=== PATIENT | female | born 1950 | race Caucasian/White ===

== ENCOUNTER 2019-10-15 | Emergency (ER) | payer MEDICARE ==
[2019-10-16 00:18] LABS: IMMATURE GRANULOCYTES 0.3 % (0.0-5.0); MEAN CELL VOLUME 102.6 fL CALC (80.0-100.0); MEAN CORPUSCULAR HGB 35.3 pG CALC (26.0-32.0); MEAN CORPUSCULAR HGB CONC 34.4 g/dL CAL (32.0-36.0); NEUT# 0.8 thou/uL (2.00-7.15); RED BLOOD COUNT 1.53 mill/uL (4.20-5.60); RED CELL DISTRI WIDTH 22.1 % (11.5-15.5)
[2019-10-16 00:23] LABS: HEMATOCRIT 15.7 % (37.0-47.0); HEMOGLOBIN 5.4 g/dl (12.0-16.0)
[2019-10-16 00:28] LABS: ALBUMIN 4.4 g/dL (3.2-5.0); ALKALINE PHOSPHATASE 30 u/l (38-126); AMYLASE 108 u/l (30-110); ANION GAP 22 (6-22 (CALC)); BILIRUBIN, TOTAL 2.7 mg/dL (0.0-1.4); BUN 34 mg/dL (8-23); BUN/CREATININE RATIO 38 (12-20 (CALC)); CARBON DIOXIDE 23 mmol/l (22-30); CHLORIDE 85 mmol/l (95-108); CREATININE 0.9 mg/dL (0.5-1.0); GFR > 60 ML/MIN (>=60 (CALC)); GFR FOR AFR.AMER. > 60 ML/MIN (>=60 (CALC)); LIPASE 364 u/l (23-300); POTASSIUM 3.7 mmol/l (3.5-5.1); SGOT/AST 50 u/l (9-36); SODIUM 126 mmol/l (137-146); TOTAL PROTEIN 7.8 g/dL (6.3-8.2)
[2019-10-16 00:40] LABS: MYOGLOBIN 230 ng/mL (0 - 62)
[2019-10-16] MEDS ORDERED: MAGNESIUM500 M3 PO (01:05)
[2019-10-16] MEDS ORDERED: DIGOXIN0.125 MG PO (01:05)
[2019-10-16] MEDS ORDERED: LASIX 40 MG TAB40 MG PO (01:05)
[2019-10-16] MEDS ORDERED: POTASSIUM CHLO10 MEQ PO (01:15)
[2019-10-16] MEDS ORDERED: METOPROL TAR25 MG PO (01:16)
[2019-10-16] MEDS ORDERED: DILTIAZEM CD180 MG PO (01:17)
[2019-10-16] MEDS ORDERED: ELIQUIS2.5 MG PO (01:18)
[2019-10-16] MEDS ORDERED: METFORMIN HCL1000 MG PO (01:24)
[2019-10-16] MEDS ORDERED: NEURONTIN100 MG PO (01:25)
[2019-10-16] MEDS ORDERED: BRILINTA90 MG PO (01:25)
[2019-10-16] MEDS ORDERED: ATORVASTATIN CA40 MG PO (01:26)
[2019-10-16] MEDS ORDERED: BYDUREON2 MG IJ (01:27)
[2019-10-16 01:54] VITALS: BP 111/56
[2019-10-16 02:15] VITALS: BP 121/57
== END 2019-10-16 02:59 ==
PROVIDERS: Family Medicine
PROC: 30233N1 Transfusion of Nonautologous Red Blood Cells into Peripheral Vein, Percutaneous Approach (ICD-10-PCS; principal; 2019-10-16)
DX: I21.9 Acute myocardial infarction, unspecified (principal); K92.2 Gastrointestinal hemorrhage, unspecified; D64.9 Anemia, unspecified; I10 Essential (primary) hypertension; E11.40 Type 2 diabetes mellitus with diabetic neuropathy, unspecified; Z95.5 Presence of coronary angioplasty implant and graft
CPT/HCPCS: P9016; S0164

== ENCOUNTER 2019-10-28 12:27 | Emergency (ER) | payer MEDICARE ==
[~2019-10-28 12:27] MED LIST: ATORVASTATIN CA40 MG PO; BRILINTA90 MG PO; BYDUREON2 MG IJ; DIGOXIN0.125 MG PO; DILTIAZEM CD180 MG PO; ELIQUIS2.5 MG PO; LASIX 40 MG TAB40 MG PO; MAGNESIUM500 M3 PO; METFORMIN HCL1000 MG PO; METOPROL TAR25 MG PO; NEURONTIN100 MG PO; POTASSIUM CHLO10 MEQ PO
[2019-10-28 12:55] LABS: HEMATOCRIT 21.2 % (37.0-47.0); HEMOGLOBIN 7.2 g/dl (12.0-16.0); IMMATURE GRANULOCYTES 3.3 % (0.0-5.0); MEAN CORPUSCULAR HGB 31.4 pG CALC (26.0-32.0); NEUT# 1.21 thou/uL (2.00-7.15); RED BLOOD COUNT 2.29 mill/uL (4.20-5.60); RED CELL DISTRI WIDTH 16.9 % (11.5-15.5)
[2019-10-28 12:56] LABS: MEAN CELL VOLUME 92.6 fL CALC (80.0-100.0)
[2019-10-28 13:12] LABS: INTERNATIONAL NORMALIZED RATIO 1.1 RATIO (0.7-1.3); PROTHROMBIN TIME 11.2 SECONDS (9.0-12.5)
[2019-10-28 13:19] LABS: ALKALINE PHOSPHATASE 30 u/l (38-126); ANION GAP 18 (6-22 (CALC)); BUN 30 mg/dL (8-23); BUN/CREATININE RATIO 34 (12-20 (CALC)); CARBON DIOXIDE 22 mmol/l (22-30); CHLORIDE 90 mmol/l (95-108); CREATININE 0.9 mg/dL (0.5-1.0); GFR > 60 ML/MIN (>=60 (CALC)); GFR FOR AFR.AMER. > 60 ML/MIN (>=60 (CALC)); SGOT/AST 24 u/l (9-36); SODIUM 126 mmol/l (137-146); TOTAL PROTEIN 6.5 g/dL (6.3-8.2)
[2019-10-28 13:22] LABS: ALBUMIN 3.3 g/dL (3.2-5.0)
[2019-10-28 14:05] LABS: C-REACTIVE PROTEIN 15.2 mg/dL (0-0.9)
[2019-10-28 14:58] LABS: URINE BILIRUBIN - DIPSTICK NEGATIVE (NEGATIVE); URINE BLOOD DIPSTICK NEGATIVE (NEGATIVE); URINE COLOR YELLOW; URINE GLUCOSE - DIPSTICK NEGATIVE (NEGATIVE); URINE KETONE NEGATIVE (NEGATIVE); URINE LEUK ESTERASE NEGATIVE (NEGATIVE); URINE NITRITE - DIPSTICK NEGATIVE (Negative); URINE PROTEIN - DIPSTICK 30 mg/dL (NEG-TRACE); URINE SPECIFIC GRAVITY 1.015; URINE UROBILINOGEN - DIPSTICK 0.2 E.U./dL (0.2)
[2019-10-28 15:04] LABS: URINE MUCUS FEW hpf (NONE-FEW); URINE SQUAMOUS EPITHELIAL CELL FEW EPI/hpf (0-FEW)
[2019-10-28 18:06] VITALS: BP 95/51
== END 2019-10-28 18:06 ==
LOC: ED 12:27
PROVIDERS: Family Medicine
DX: A41.9 Sepsis, unspecified organism (principal); R65.20 Severe sepsis without septic shock; I21.4 Non-ST elevation (NSTEMI) myocardial infarction; E87.1 Hypo-osmolality and hyponatremia; E87.2 Acidosis; I10 Essential (primary) hypertension; E11.40 Type 2 diabetes mellitus with diabetic neuropathy, unspecified; Z95.5 Presence of coronary angioplasty implant and graft; Z79.84 Long term (current) use of oral hypoglycemic drugs; Z20.828 Contact with and (suspected) exposure to other viral communicable diseases
CPT/HCPCS: J0692; Q9967

== ENCOUNTER 2021-03-20 14:31 | Inpatient (IN) | payer MEDICARE ==
[~2021-03-20] VITALS: Ht 180.3 cm; Wt 71.0 kg
[~2021-03-20 14:31] MED LIST changes: +BYDUREON B2 MG/0.85 SC; -BYDUREON2 MG IJ; +MAGNESIUM OXID500 MG PO; -MAGNESIUM500 M3 PO
--- NOTE | 2021-03-20 14:50 | NUR ---
PT PRESENTS WITH REQUEST OF WOUND CHECK. SHE STATES SHE HAS BEEN TREATING THE WOUND AT HOME X 1 YEAR. WOUND HAS BECOME LARGER, RED, DRAINING, AND PAINFUL X 1 WEEK. PT ESCORTED TO ROOM 1.
--- NOTE | 2021-03-20 15:04 | NUR ---
Pt. moved to rm #6 for higher level of care. Report given to Ted aMttson and Ayleen Klein Rn.
[2021-03-20 15:50] LABS: IMMATURE GRANULOCYTES 0.6 % (0.0-5.0); MEAN CORPUSCULAR HGB 27.3 pG CALC (26.0-32.0); MEAN CORPUSCULAR HGB CONC 31.9 g/dL CAL (32.0-36.0); NEUT# 7.79 thou/uL (2.00-7.15); RED BLOOD COUNT 3.99 mill/uL (4.20-5.60); RED CELL DISTRI WIDTH 17.3 % (11.5-15.5)
[2021-03-20 15:51] LABS: HEMATOCRIT 34.2 % (37.0-47.0); HEMOGLOBIN 10.9 g/dl (12.0-16.0); MEAN CELL VOLUME 85.7 fL CALC (80.0-100.0)
[2021-03-20 16:00] LABS: BUN 12 mg/dL (8-23); BUN/CREATININE RATIO 20 (12-20 (CALC)); CHLORIDE 95 mmol/l (95-108); CREATININE 0.6 mg/dL (0.5-1.0); GFR > 60 ML/MIN (>=60 (CALC)); GFR FOR AFR.AMER. > 60 ML/MIN (>=60 (CALC)); POTASSIUM 4.2 mmol/l (3.5-5.1); SGOT/AST 21 u/l (9-36)
[2021-03-20 16:04] LABS: ALBUMIN 4.9 g/dL (3.2-5.0); ALKALINE PHOSPHATASE 54 u/l (38-126); ANION GAP 18 (6-22 (CALC)); CARBON DIOXIDE 28 mmol/l (22-30); SODIUM 137 mmol/l (137-146); TOTAL PROTEIN 8.8 g/dL (6.3-8.2)
--- NOTE | 2021-03-20 16:47 | NUR ---
PT RESTING QUIETLY ON STRETCHER, IV FLUIDS INFUSING
--- NOTE | 2021-03-20 17:45 | NUR ---
PT RESTING IN BED, FOOD PROVIDED PER MD SANCHEZ
--- NOTE | 2021-03-20 18:20 | NUR ---
RECIEVED REPORT FROM OG GREER. PT TO BE ADMIT TO 273.
--- NOTE | 2021-03-20 18:22 | NUR ---
REPORT GIVEN TO RICHARD FOLEY, ROOM BEING CLEANED FOR PT TRANSPORT
--- NOTE | 2021-03-20 18:31 | NUR ---
PATIENT HAD A 6 BEAT VTACH WHILE IN ER. DR SMILEY NOTIFIED. ORDER OBTAINED FOR TELEMETRY FOR ADMISSION. PATIENT TO BED ADMITTED TO ROOM 269
--- NOTE | 2021-03-20 18:37 | NUR ---
PT ARRIVED TO FLOOR VIA WHEEL CHAIR ACCOPANIED BY ER NURSE, PT ORIENTED TO ROOM AND CALL LIGHT, PT PROVIDED DINNER TRAY, CALL LIGHT IN REACH,CONTINUE TO MONITOR.
[2021-03-20 18:38] VITALS: BP 146/63
--- NOTE | 2021-03-20 20:30 | NUR ---
PT RESTING IN BED, NO SIGNS OF DISTRESS NOTED, RESP EVEN AND UNLABORED. PT ALERT AND ORIENTED X3, NOTED TRACE EDEMA TO LLE, OPEN AREA TO L GREAT TOE, SLIGHTLY REDDENED L FOOT, SEE CHART FOR PHOTO, DISCUSSED POC, PT VERBALIZED UNDERSTANDING. IV VANCO INFUSION COMPLETE, IV FLUSHED WELL, SL. ADMISSION ASSESSMENT COMPLETED, CALL LIGHT IN REACH,CONTINUE TO MONITOR.
[2021-03-21] VITALS: BP 133/76
--- NOTE | 2021-03-21 | NUR ---
PT RESTING IN BED, VITALS OBTAINED, IV ZOSYN INITIATED, PT MEDICATED WITH TYLENOL FOR LOW GRADE FEVER AND FOR PAIN 09/14, CALL LIGHT IN REACH,CONTINUE TO MONITOR.
[2021-03-21 04:00] VITALS: BP 115/53
--- NOTE | 2021-03-21 04:00 | NUR ---
PT RESTING IN BED, NO SIGNS OF DISTRESS NOTED, RESP EVEN AND UNLABORED. IV VANCO INITIATED, PT VOICES NO NEEDS OR COMPLAINTS AT THIS TIME, CALL LIGHT IN REACH,CONTINUE TO MONITOR.
[2021-03-21 05:54] LABS: HEMATOCRIT 31.9 % (37.0-47.0); HEMOGLOBIN 9.9 g/dl (12.0-16.0); MEAN CELL VOLUME 86.4 fL CALC (80.0-100.0); MEAN CORPUSCULAR HGB 26.8 pG CALC (26.0-32.0); RED BLOOD COUNT 3.69 mill/uL (4.20-5.60); RED CELL DISTRI WIDTH 17.2 % (11.5-15.5)
[2021-03-21 06:20] LABS: ANION GAP 15 (6-22 (CALC)); BUN 11 mg/dL (8-23); BUN/CREATININE RATIO 20 (12-20 (CALC)); C-REACTIVE PROTEIN 2.9 mg/dL (0-0.9); CARBON DIOXIDE 26 mmol/l (22-30); CHLORIDE 100 mmol/l (95-108); CREATININE 0.6 mg/dL (0.5-1.0); GFR > 60 ML/MIN (>=60 (CALC)); GFR FOR AFR.AMER. > 60 ML/MIN (>=60 (CALC)); MAGNESIUM 1.3 mg/dL (1.6-2.3); POTASSIUM 4.1 mmol/l (3.5-5.1); SODIUM 137 mmol/l (137-146)
--- NOTE | 2021-03-21 07:00 | NUR ---
RECIEVED REPORT FROM MYA LEE
--- NOTE | 2021-03-21 08:01 | NUR ---
DR MATTHEWS AT BEDSIDE
[2021-03-21 08:04] VITALS: BP 140/60
--- NOTE | 2021-03-21 08:04 | NUR ---
PT RESTING IN SEMI FOWLERS POSITION. PT IS A/OX3. ASSESSMENT AND VITALS COMPLETED. BP140/60, HR 94, O2 99% ON ROOM AIR. RESPIRATIONS ARE EVEN AND UNLABORED. LUNG SOUNDS ARE CLEAR. HEART RHYTHM IRREGULAR WITH TELE IN PLACE, AFIB PER ER MONITORING. BOWEL SOUNDS ARE ACTIVE. #20G RFA FLUSHED, SITE APPEARS HEALTHY AND PATENT. ULCER TO LEFT GREAT TOE NOTED, DRY DRESSING APPLIED PER PT REQUEST DUE TO DRAINAGE. PT COMPLAINS OF 7/10 PAIN, PT TO BE MEDICATED PER EMAR. PT DENIES OF ANY ADDITIONAL PAINS AT THIS TIME. ALL SAFTEY PRECAUTIONS ARE IN PLACE. WILL CONTINUE TO MONITOR.
--- NOTE | 2021-03-21 09:20 | NUR ---
PT TRANSPORTED TO MRI VIA [facility]RECTHER ACCOMPAINED BY PATTIE MORA IN STABLE CONDITION
[2021-03-21] MEDS ORDERED: ELIQUIS2.5 MG PO (09:27)
[2021-03-21] MEDS ORDERED: PLAVIX75 MG PO (09:27)
[2021-03-21] MEDS ORDERED: VITAMIN B-121000 MCG PO (09:31)
--- NOTE | 2021-03-21 10:06 | NUR ---
S: STEVE SOLANO is a 70 F who presents with cellulitis of left foot. She has a history of arthritis, diabetes, heart disease, hypertension, neuropathy, anemia, and leukemia. All medications in patient's chart were reviewed. O: VS: BP 140/60 mmHg, P 94 bpm, RR 18 breaths/min, T 97.9 degF W 71 kg, HT 71 in, Scr= 0.6 mg/dL, CrCl= 57 ml/min A: Blood culture is pending. Urine culture is pending. P: Patient is on Zosyn 3.375g IV Q6H and vancomycin 1g IV Q12H. Vancomycin ordered for pharmacy to dose. Start Vancomycin 100mg IV Q12H. Vancomycin trough is drawn before the 4th dose on 03/22/21 at 0330. Vancomycin goal trough is between 10-20 mcg/ml. Pharmacy will follow and or advise on antibiotics use as needed.
--- NOTE | 2021-03-21 10:30 | NUR ---
PT ARRIVED BACK TO [facility] ROOM 269 VIA WHEELCHAIR. PT REQUEST TO SHOWER. PT ASSISTED TO SHOWER. WILL CONTINUE TO MONITOR
--- NOTE | 2021-03-21 10:55 | NUR ---
DR SMILEY AND JOSH,ANTAMMY AT BEDSIDE
[2021-03-21 12:00] VITALS: BP 168/65
[2021-03-21] MEDS ORDERED: DIGITEK0.125 M1 PO (12:12)
--- NOTE | 2021-03-21 12:13 | NUR ---
PT SITTING ON SIDE OF BED EATING LUNCH. RESPIRATIONS ARE EVEN AND UNLABORED WITH NO DISTRESS NOTED. IV ANITBIOTICS INFUSING PER ORDER, SITE REMAINS HEALTHY AND PATENT. DRY DRESSING LEFT GREAT TOE REAMINS CDI. PT DENIES OF ANY ADDITIONAL NEEDS AT THIS TIME. ALL SAFETY PRECAUTIONS ARE IN PLACE. WILL CONTINUE TO MONITOR
--- NOTE | 2021-03-21 13:39 | NUR ---
REPORTD BP OF 168/65, DR SMILEY NOTIFIED. PT REFUSED AM METOPROLOLDUE TO WRONG DOSE. CORECT DOSAGE ORDERED.
[2021-03-21 14:30] VITALS: BP 119/59
--- NOTE | 2021-03-21 14:33 | NUR ---
REASSESSMENT OF BP RESULTING IN 119/59, HR 72.
--- NOTE | 2021-03-21 16:09 | NUR ---
PT RESTING IN SEMI FOWLERS POSITION. RESPIRATIONS ARE EVEN AND UNLABORED WITH NO DISTRESS NOTED. #20G RFA INFUSING WITH IVF ANTIBIOTICS. TELE MONITORING IN PLACE. PT DENIES OF ANY PAINS OR DISCOMFORTS AT THIS TIME. ALL SAFETY PRECAUTIONS ARE IN PLACE WITH CALL LIGHT IN REACH. WILL CONTINUE TO MONITOR
--- NOTE | 2021-03-21 17:20 | NUR ---
MEDICAL RECORDS REQUEST FAXED [phone].
--- NOTE | 2021-03-21 17:21 | NUR ---
[facility] US. RADIOLOGY CALLED. US TO BE CALLED IN PER TYREL KINCAIDRP
--- NOTE | 2021-03-21 18:30 | NUR ---
PT TRANSPORTED TO US VIA WHELECHAIR IN STABLE CONDITION.
[2021-03-21 19:45] VITALS: BP 136/65
--- NOTE | 2021-03-21 20:00 | NUR ---
PHYSICAL ASSESMENT COMPLETE. PT CURRENTLY DENIES PAIN OR DISCOMFORT. SCHEDULED MEDICATIONS AND PRN MEDICATION ADMINISTERED, SEE E-MAR. PT DENIES ANY NEEDS AT THIS TIME. PLAN OF CARE REVIEWED, PT DENIES QUESTIONS, VERBALIZES UNDERSTANDING. ITEMS WITHIN REACH, BED LOCKED IN LOW POSITION W/ BEDRAILS UP X2. CALL WHITE WITHIN REACH, AGREES TO CALL PRN.
[2021-03-22] VITALS: BP 127/71
--- NOTE | 2021-03-22 | NUR ---
PT LAYING IN BED WITH EYES CLOSED, APPEARS TO BE SLEEPING, APPEARS COMFORTABLE AND IN NO DISTRESS. RESPIRATIONS REGULAR AND UNLABORED. ITEMS REMAIN WITHIN REACH, CALL WHITE REMAINS WITHIN REACH. BED REMAINS LOCKED AND IN LOW POSITION WITH BEDRAILS UP X2. WILL CONTINUE TO MONITOR.
[2021-03-22 03:44] LABS: HEMATOCRIT 29.9 % (37.0-47.0); HEMOGLOBIN 9.3 g/dl (12.0-16.0); MEAN CELL VOLUME 87.2 fL CALC (80.0-100.0); MEAN CORPUSCULAR HGB 27.1 pG CALC (26.0-32.0); MEAN CORPUSCULAR HGB CONC 31.1 g/dL CAL (32.0-36.0); RED BLOOD COUNT 3.43 mill/uL (4.20-5.60); RED CELL DISTRI WIDTH 17.4 % (11.5-15.5)
[2021-03-22 04:00] VITALS: BP 110/61
--- NOTE | 2021-03-22 04:39 | NUR ---
PT RESTING IN BED, NO SIGNS OF DISTRESS NOTED, RESP EVEN AND UNLABORED. PT RECEIVING IV ANTIBIOTICS. PT VOICES NO NEEDS OR COMPLAINTS AT THIS TIME. CALL LIGHT IN REACH, CONTINUE TO MONITOR.
--- NOTE | 2021-03-22 07:00 | NUR ---
RECHOMEROVD REPORT FROM OG HORAN
[2021-03-22 08:09] VITALS: BP 140/70
--- NOTE | 2021-03-22 08:09 | NUR ---
PT RESTING IN SEMI FOWLERS POSITION. PT IS A/O X3. ASSESSMENT AND VITALS COMPLETED. BP 140/70, HR 93, O2 99% ON ROOM AIR. RESPIRATIONS ARE EVEN AND UNLABORED WITH NO DISTRESS NOTED. LUNG SOUNDS ARE CLEAR. HEART RHYTHM IRREGULAR WITH TELE IN PLACE, AFIB PER ER MONITORING. BOWEL SOUNDS ARE ACTIVE. #20G RFA FLSUHED, SITE REMAINS HEALTHY AND PATENT. ULCER TO LEFT GREAT TOE NOTED. DRY DRESSING REMAINS CDI. PT COMPLAINS OF 3/10 PAIN, PT TO BE MEDICATED PER EMAR. PT DENIES OF ANY ADDITIONAL NEEDS AT THIS TIME. ALL SAFETY PRECAUTIONS ARE IN PLACE WITH CALL LIGHT IN REACH. WILL CONTINUE TO MONITOR
--- NOTE | 2021-03-22 09:49 | NUR ---
DR SMILEY AND JOSH,ANTAMMY AT BEDSIDE
--- NOTE | 2021-03-22 10:40 | NUR ---
PT INFORMED OF TRANSFER TO [facility]. PT INFORMED OF WAIT TIME FOR BED. PT VERBALIZED UNDERSTANDING.
[2021-03-22 11:21] VITALS: BP 118/60
--- NOTE | 2021-03-22 11:44 | NUR ---
PT CAR HEREDIA TAKEN DOWN TO FRIEND MYLES PT REQUEST.
--- NOTE | 2021-03-22 12:15 | NUR ---
PT RESTING IN SEMI FOWLERS POSITION. RESPIRATIONS ARE EVEN AND UNLABORED WITH NO DISTRESS NOTED. #20G RFA INFUSING WITH IVF ANTIBIOTICS WITH EASE, SITE REMAINS HEALTHY AND PATENT. TELE MONITORING IN PLACE, AFIB PER ER MONITORING. PT COMPLAINS OF 3/10. PT MEDICATED WITH TYLENOL. PT DENIES OF ANY ADDITIONAL NEEDS. ALL SAFETY PRECAUTIONS ARE IN PLACE WITH CALL LIGHT IN REACH. WILL CONTINUE TO MONITOR
--- NOTE | 2021-03-22 14:42 | NUR ---
ROOM 233 RECIEVED FROM [facility]. [facility] CALLED, SPOKE WITH WILIAM. TRANSPORTATION TO ARRIVED IN 30 MIN. PT INFORMED, VERBLAIZED UNDERSTANDING.
--- NOTE | 2021-03-22 15:33 | NUR ---
PT TRANSPORTED TO [facility]IA [facility] IN STABLE CONDITION WITH ALL PERSONAL BELONGINGS.
--- NOTE | 2021-03-22 15:40 | NUR ---
REPORT GIVEN TO OG SOLOMON AT [facility].
--- NOTE | 2021-03-22 16:09 | NUR ---
PT SLEEPING IN SEMI FOWLERS POSITION. FAMILY FRIEND AT BEDSIDE TO VISIT. PT NAME CALLED. PT OPENED EYES SLIGHTLY. WHEN ASKED IF SHE WANTS TO WAKE UP TO VIST, PT SHAKES HEAD NO. RESPIRATIONS REMAINS EVEN AND UNLABORED WITH NO DISTRESS.TELE MONITORING IN PLACE. #22 LFA INFUSING WITH IVF PER ORDER, SITE REMAINS HEALTHY AND PATENT. BENDER CATH IN PLACE, YELLOW URINE NOTED. NO SIGNS OF ANY PAINS OR DISCOMFORTS AT THIS TIME. ALL SAFETY PRECAUTIONS ARE IN PLACE WITH CALL LIGHT IN REACH. WILL CONTINUE TO MONITOR
== END 2021-03-22 15:28 | DRG 638 ==
LOC: ED 14:31 → ED-I 17:42 → ED 17:54 → MS2 17:55
PROVIDERS: Family Medicine; Nurse Practitioner; ADMIT Hospitalist; ATTEND Hospitalist
DX: E11.69 Type 2 diabetes mellitus with other specified complication (principal); M86.8X7 Other osteomyelitis, ankle and foot; L03.116 Cellulitis of left lower limb; C92.01 Acute myeloblastic leukemia, in remission; E11.51 Type 2 diabetes mellitus with diabetic peripheral angiopathy without gangrene; I70.202 Unspecified atherosclerosis of native arteries of extremities, left leg; S91.102A Unspecified open wound of left great toe without damage to nail, initial encounter; E11.40 Type 2 diabetes mellitus with diabetic neuropathy, unspecified; I10 Essential (primary) hypertension; I48.91 Unspecified atrial fibrillation; I25.10 Atherosclerotic heart disease of native coronary artery without angina pectoris; M19.90 Unspecified osteoarthritis, unspecified site; B95.4 Other streptococcus as the cause of diseases classified elsewhere; X58.XXXA Exposure to other specified factors, initial encounter; Z95.5 Presence of coronary angioplasty implant and graft; Z79.84 Long term (current) use of oral hypoglycemic drugs; Z20.822 Contact with and (suspected) exposure to COVID-19
CPT/HCPCS: A9579; J1650; J3475

== ENCOUNTER 2024-01-25 16:38 | Observation (INO) | payer MEDICARE ==
[~2024-01-25] VITALS: Ht 180.3 cm; Wt 76.3 kg
[2024-01-25] VITALS (17 sets, daily range): BP systolic 112–163; BP diastolic 39–131
[~2024-01-25 16:38] MED LIST changes: +CARDIZEM LA180 M1 PO; +DIGITEK0.125 M1 PO; -DILTIAZEM CD180 MG PO; +PLAVIX75 MG PO; +VITAMIN B-121000 MCG PO
[2024-01-25] MEDS ORDERED: ONDANSETRON HCl 4 MG/2 ML SDV IV ONE (17:00)
[2024-01-25] MEDS ORDERED: GLUCAGON HCL (Rdna) 1 MG VIAL IV ONE ×2 (17:00→17:45)
[2024-01-25] MEDS ORDERED: ASPIRIN 81 MG/TAB PO ONE (17:10)
[2024-01-25] MEDS ORDERED: MORPHINE SULFATE 4 MG/ML VIAL IV ONE (17:15)
[2024-01-25 17:26] LABS: BASO% 0.7 % (0-3); EOS% 5.8 % (0-8); HEMATOCRIT 28.4 % (37.0-47.0); HEMOGLOBIN 9.4 g/dl (12.0-16.0); IMMATURE GRANULOCYTES 1.6 % (0.0-5.0); LYMPH% 25.1 % (15-41); MEAN CELL VOLUME 90.7 fL CALC (80.0-100.0); MEAN CORPUSCULAR HGB CONC 33.1 g/dL CAL (32.0-36.0); MONO% 6.6 % (2-13); NEUT# 4.96 thou/uL (2.00-7.15); NEUT% 60.2 % (42-76); RED BLOOD COUNT 3.13 mill/uL (4.20-5.60)
[2024-01-25 17:43] LABS: D-DIMER 0.55 mg/L (0.19-0.60)
[2024-01-25 17:47] LABS: ALBUMIN 4.9 g/dL (3.2-5.0); ALKALINE PHOSPHATASE 29 u/l (38-126); BILIRUBIN, TOTAL 0.7 mg/dL (0.02-1.3); BUN 26 mg/dL (8-23); CARBON DIOXIDE 21 mmol/l (22-30); CHLORIDE 103 mmol/l (95-108); SGOT/AST 28 u/l (9-36); SODIUM 134 mmol/l (137-146)
[2024-01-25 17:50] LABS: INTERNATIONAL NORMALIZED RATIO 1.2 RATIO (0.7-1.3)
[2024-01-25 17:58] LABS: BUN/CREATININE RATIO 14 (12-20 (CALC)); CREATININE 1.9 mg/dL (0.5-1.0); ESTIMATED GFR 27 ML/MIN (>=90 (CALC))
[2024-01-25 17:59] LABS: ANION GAP 16 (6-22 (CALC))
[2024-01-25 18:00] LABS: POTASSIUM 6.3 mmol/l (3.5-5.1)
[2024-01-25] MEDS ORDERED: ALBUTEROL SULFATE 2.5 MG VIAL IN ONE (19:10)
[2024-01-25] MEDS ORDERED: CALCIUM GLUCONATE 1 GM in SODIUM CHLORIDE 0.9% 50 ML IV ONE (19:10)
[2024-01-25] MEDS ORDERED: INSULIN REGULAR (HUMAN) 100 UNIT/ML INJ IV ONE ×2 (19:10→21:45)
[2024-01-25] MEDS ORDERED: DEXTROSE 10% 500 ML BAG IV ONE (19:10)
[2024-01-25] MEDS ORDERED: SODIUM POLYSTYRENE SULFONATE 15 G/BTL POWDER PO ONE (19:10)
[2024-01-25] MEDS ORDERED: ACETAMINOPHEN 325 MG/TAB PO PRN (19:15)
[2024-01-25] MEDS ORDERED: MORPHINE SULFATE 4 MG/ML VIAL IV PRN (19:15)
[2024-01-25] MEDS ORDERED: NITROGLYCERIN 0.4 MG/TAB SL PRN (19:15)
[2024-01-25] MEDS ORDERED: SODIUM CHLORIDE 0.9% 500 ML IV ONE (19:15)
[2024-01-25] MEDS ORDERED: MAGNESIUM HYDROXIDE 30 ML UDC PO PRN (19:15)
[2024-01-25] MEDS ORDERED: IPRATROPIUM-Albuterol 0.5MG-2.5MG/3 ML NEB PRN (19:20)
[2024-01-25] MEDS ORDERED: ONDANSETRON HCl 4 MG/2 ML SDV IV PRN (19:20)
[2024-01-25] MEDS ORDERED: CLARIFY DOSE PO PRN (20:25)
[2024-01-25] MEDS ORDERED: SODIUM ZIRCONIUM CYCLOSILICATE 10 GM PAK PO SCH ×2 (21:00→21:45)
[2024-01-25] MEDS ORDERED: ATORVASTATIN CALCIUM 40 MG/TAB PO SCH (21:00)
[2024-01-25] MEDS ORDERED: APIXABAN BASE 2.5 MG/TAB TAB PO SCH (21:00)
[2024-01-25] MEDS ORDERED: INSULIN LISPRO 100 UNITS/ML ML SC SCH (21:00)
[2024-01-25] MEDS ORDERED: FENOFIBRATE160 MG PO (21:25)
[2024-01-25] MEDS ORDERED: GLIPIZIDE10 M2 PO (21:27)
[2024-01-25] MEDS ORDERED: FEROSUL325 MG PO (21:28)
[2024-01-25] MEDS ORDERED: CITRACAL + D3 MAXIMU PO (21:29)
[2024-01-25] MEDS ORDERED: FISH OIL1000 M1 PO (21:30)
[2024-01-25] MEDS ORDERED: SODIUM BICARBONATE 150 ML in DEXTROSE 5% 850 ML IV PRN (21:40)
[2024-01-25] MEDS ORDERED: DEXTROSE 250 ML IV PRN (21:45)
[2024-01-25] MEDS ORDERED: FUROSEMIDE 40 MG/4 ML SDV IV SCH (21:45)
[2024-01-25] MEDS ORDERED: CALCIUM GLUCONATE 2 GM in SODIUM CHLORIDE 0.9% 100 ML IV ONE (21:45)
[2024-01-25 22:15] LABS: ALBUMIN 4.6 g/dL (3.2-5.0)
[2024-01-25 22:17] LABS: POTASSIUM 5.6 mmol/l (3.5-5.1)
[2024-01-25] MEDS ORDERED: hydrALAZINE HCL 20 MG/ML VIAL(1 ML) IV PRN (23:05)
[2024-01-25] MEDS ORDERED: SODIUM POLYSTYRENE SULFONATE 15 G/BTL POWDER PO SCH (23:45)
[2024-01-25] MEDS ORDERED: ALBUTEROL SULFATE 2.5 MG VIAL ONE (23:55)
[2024-01-26] VITALS (22 sets, daily range): BP systolic 122–182; BP diastolic 38–113
[2024-01-26 05:32] LABS: BASO% 0.6 % (0-3); EOS% 4.4 % (0-8); HEMATOCRIT 30.1 % (37.0-47.0); HEMOGLOBIN 9.7 g/dl (12.0-16.0); IMMATURE GRANULOCYTES 1.1 % (0.0-5.0); LYMPH% 20.3 % (15-41); MEAN CELL VOLUME 91.8 fL CALC (80.0-100.0); MEAN CORPUSCULAR HGB 29.6 pG CALC (26.0-32.0); MEAN CORPUSCULAR HGB CONC 32.2 g/dL CAL (32.0-36.0); MONO% 7.1 % (2-13); NEUT# 4.67 thou/uL (2.00-7.15); NEUT% 66.5 % (42-76); RED BLOOD COUNT 3.28 mill/uL (4.20-5.60)
[2024-01-26 05:54] LABS: BILIRUBIN, TOTAL 0.7 mg/dL (0.02-1.3); CHOLESTEROL HDL RATIO 4.9 (<4.4 (CALC)); CREATININE 1.9 mg/dL (0.5-1.0); POTASSIUM 4.7 mmol/l (3.5-5.1)
[2024-01-26 06:04] LABS: MAGNESIUM 1.9 mg/dL (1.6-2.3)
[2024-01-26] MEDS ORDERED: amLODIPine BESYLATE 2.5 MG/TAB PO SCH (09:00)
[2024-01-26] MEDS ORDERED: SODIUM ZIRCONIUM CYCLOSILICATE 10 GM PAK PO SCH ×2 (09:00)
[2024-01-26] MEDS ORDERED: CLOPIDOGREL BISULFATE 75 MG/TAB TAB PO SCH (09:00)
[2024-01-26] MEDS ORDERED: METOPROLOL SUCCINATE 25 MG/TAB-TOPROL XL PO SCH (10:00)
[2024-01-27] VITALS (9 sets, daily range): BP systolic 74–164; BP diastolic 46–74
[2024-01-27] MEDS ORDERED: LEVOTHYROXINE SODIUM 25 MCG/TAB PO SCH (06:00)
[2024-01-27 06:08] LABS: BASO% 0.5 % (0-3); EOS% 5.9 % (0-8); HEMATOCRIT 30.7 % (37.0-47.0); IMMATURE GRANULOCYTES 0.8 % (0.0-5.0); LYMPH% 22.4 % (15-41); MEAN CELL VOLUME 92.5 fL CALC (80.0-100.0); MEAN CORPUSCULAR HGB 30.1 pG CALC (26.0-32.0); MEAN CORPUSCULAR HGB CONC 32.6 g/dL CAL (32.0-36.0); MONO% 8.3 % (2-13); NEUT# 3.68 thou/uL (2.00-7.15); NEUT% 62.1 % (42-76); RED BLOOD COUNT 3.32 mill/uL (4.20-5.60); RED CELL DISTRI WIDTH 15.7 % (11.5-15.5)
[2024-01-27] MEDS ORDERED: AMLODIPINE BESYL5 MG PO (06:20)
[2024-01-27 06:28] LABS: BILIRUBIN, TOTAL 0.8 mg/dL (0.02-1.3); CREATININE 1.8 mg/dL (0.5-1.0); MAGNESIUM 1.9 mg/dL (1.6-2.3); POTASSIUM 4.4 mmol/l (3.5-5.1); TOTAL PROTEIN 8.1 g/dL (6.3-8.2)
[2024-01-27] MEDS ORDERED: amLODIPine BESYLATE 5 MG/TAB PO SCH (09:00)
[2024-01-27] MEDS ORDERED: METOPROLOL TARTRATE 25 MG/TAB PO SCH ×2 (09:00→09:30)
[2024-01-27] MEDS ORDERED: LOPRESSOR 550 MG/TAB PO (09:19)
== END 2024-01-27 11:30 | disposition home or self-care (01) ==
LOC: ED 16:38 → ED-I 18:17 → ED 18:51 → ICU 18:52
PROVIDERS: Family Medicine; Internal Medicine Nephrology; ADMIT Student in an Organized Health Care Education/Training Program; ATTEND Student in an Organized Health Care Education/Training Program
DX: R00.1 Bradycardia, unspecified (principal); T46.1X5A Adverse effect of calcium-channel blockers, initial encounter; T44.7X5A Adverse effect of beta-adrenoreceptor antagonists, initial encounter; T46.0X5A Adverse effect of cardiac-stimulant glycosides and drugs of similar action, initial encounter; N17.9 Acute kidney failure, unspecified; E87.5 Hyperkalemia; E86.9 Volume depletion, unspecified; E87.1 Hypo-osmolality and hyponatremia; E87.20 Acidosis, unspecified; D64.9 Anemia, unspecified; I12.9 Hypertensive chronic kidney disease with stage 1 through stage 4 chronic kidney disease, or unspecified chronic kidney disease; E11.22 Type 2 diabetes mellitus with diabetic chronic kidney disease; N18.9 Chronic kidney disease, unspecified; I48.20 Chronic atrial fibrillation, unspecified; E11.40 Type 2 diabetes mellitus with diabetic neuropathy, unspecified; I25.10 Atherosclerotic heart disease of native coronary artery without angina pectoris; I25.2 Old myocardial infarction; Z95.5 Presence of coronary angioplasty implant and graft; Z85.6 Personal history of leukemia; Z87.891 Personal history of nicotine dependence; Z79.01 Long term (current) use of anticoagulants
CPT/HCPCS: J1610